=== PATIENT | female | born 1960 | race Caucasian/White ===

== ENCOUNTER 2017-06-30 09:14 | Day surgery (SDC) | END 2017-06-30 15:00 | disposition home or self-care (01) ==

== ENCOUNTER 2017-12-08 10:12 | Inpatient (IN) | END 2017-12-12 18:30 | disposition home or self-care (01) | DRG 743 ==

== ENCOUNTER → 2018-09-22 | Outpatient (CLI) | payer OTHER ==
[~2018-09-22] MED LIST: DOCU-144 PO; HYDR12.58 PO; IOHEXOL 100 ML ONE; LORA10TA3 PO; NITROGLYCERIN AEROSOL (4.9 GM) ONE; NITROGLYCERIN AEROSOL (4.9 GM) SL ONE; OMEP20CA16 PO; SOD CHLORIDE 0.9% 100 ML ONE
== END | disposition home or self-care (01) ==
LOC: C/S 09:29
PROVIDERS: ATTEND Internal Medicine
DX: R93.1 Abnormal findings on diagnostic imaging of heart and coronary circulation (principal); R07.9 Chest pain, unspecified
CPT/HCPCS: 75571; 75574; Q9967; Z7610